=== PATIENT | female | born 1955 | race Caucasian/White ===

== ENCOUNTER → 2021-07-21 | Outpatient (CLI) | payer OTHER ==
[~2021-07-21] MED LIST: BACTRIM DS TAB1 EACH PO; BIOTIN5000 MCG PO; CALCIUM 600 +1 EAC1 PO; CARDIZEM CD180 MG PO; COZAAR 50 MG TA50 M2 PO; FISH OIL 1,001000 M2 PO; FLECAINIDE ACET50 M2 PO; GLUCOSAMINE-CH1 EA38 PO; LEVOTHYROXIN0.088 MG PO; LYSINE500 MG PO; OMEPRAZOLE40 MG PO; PROBIOTIC1 EAC1 PO; STOOL SOFTENER100 MG PO; TURMERIC500 M1 PO; UNICOMPLEX M TA1 TA1 PO; VITAMINC500 PO; XARELTO20 MG PO
== END ==
LOC: SJCVCIMAG 10:32
PROVIDERS: ATTEND Internal Medicine Cardiovascular Disease
DX: I34.0 Nonrheumatic mitral (valve) insufficiency (principal); I48.91 Unspecified atrial fibrillation; I10 Essential (primary) hypertension

== ENCOUNTER 2021-08-13 06:28 | Observation (INO) | payer OTHER ==
[2021-08-13] VITALS (8 sets, daily range): BP systolic 97–113; BP diastolic 58–81
[~2021-08-13] VITALS: Ht 162.6 cm; Wt 99.3 kg
[~2021-08-13 06:28] MED LIST changes: +COZAAR 50 MG TA50 M1 PO; -COZAAR 50 MG TA50 M2 PO; -LEVOTHYROXIN0.088 MG PO; +SYNTHROID112 MC1 PO
[2021-08-13 07:24] LABS: ABSOLUTE NEUTROPHILS 3.9 thou/uL (1.4-8.2); BASOPHILS 0.9 % (0.0-2.0); EOSINOPHILS 2.6 % (0.0-3.0); HEMATOCRIT 41.2 % (37.0-47.0); HEMOGLOBIN 13.7 gm/dL (12.0-15.0); LYMPHOCYTES 30.2 % (24.0-44.0); MCH 30.3 pg (26.0-34.0); MCHC 33.3 g/dL (28.0-37.0); MONOCYTES 9.3 % (1.0-8.0); PLATELET COUNT 259 thou/uL (150-400); RBC 4.52 mil/uL (4.20-5.00); RDW 13.8 % (10.5-14.5); WBC 6.9 thou/uL (4.0-11.0)
[2021-08-13 07:34] LABS: CALCIUM 9.1 mg/dL (8.5-10.1); POTASSIUM 3.5 mmol/L (3.5-5.1)
[2021-08-13 07:40] LABS: ALBUMIN 3.6 g/dL (3.4-5.0); TOTAL BILIRUBIN 0.6 mg/dL (0.2-1.0); TOTAL PROTEIN 7.5 g/dL (6.4-8.2)
[2021-08-13] MEDS ORDERED: SIMVASTATIN80 MG PO (07:53)
[2021-08-13] MEDS ORDERED: HYDROCHLOROTHIA25 M1 PO (07:54)
[2021-08-13] MEDS ORDERED: COZAAR 25 MG TA25 M1 PO (07:54)
[2021-08-13] MEDS ORDERED: NORVASC5 MG PO (07:55)
[2021-08-13 08:30] LABS: APTT 29.5 Seconds (24.5-32.8); INR 1.01
[2021-08-13] MEDS ORDERED: TAMBOCOR 100 M100 MG PO (15:14)
--- NOTE | 2021-08-13 15:50 | NUR ---
PT ARRIVED VIA BED FROM [employer]. GROIN SITE BLEEDING UPON ARRIVAL. CATH NURSE HELD PRESSURE TO RIGHT GROIN SITE. HEMASTASIS ACHIEVED AT 1440. PT IS A&OX4. PATRIZIA AT BEDSIDE. PT IS SR ON THE MONITOR AND IS ROOM AIR. PT STATED SHE HAD PAIN IN HER MID BACK RATING 1/10 BUT STATED SHE DOES NOT WANT ANYTHING FOR IT. PT STATED THAT IT MAY GO AWAY WHEN SHE IS ABLE TO GET OFF OF HER BACK. NO OTHER COMPLAINTS AT THIS TIME. CALL LIGHT WITHIN REACH.
[2021-08-13] MEDS ORDERED: ZYRTEC10 M4 PO (16:04)
[2021-08-14 00:45] VITALS: BP 105/67
[2021-08-14 05:05] VITALS: BP 122/78
[2021-08-14 08:20] VITALS: BP 109/63
[2021-08-14] MEDS ORDERED: DILTIAZEM ER180 M2 PO (08:38)
[2021-08-14 09:25] VITALS: BP 109/63
--- NOTE | 2021-08-14 10:39 | NUR ---
PT HOME THIS AM AFTER BREAKFAST - INSTRUCTION RE HOME MEDS/ CARE AND FOLLOW UP GIVEN TO PATIENT. STATED UNDERSTANDING OF INSTRUCTION GIVEN. PT LEFT UNIT VIA WHEELCHAIR - HOME VIA PVT VEHICLE ACCOMPANIED BY SPOUSE - NO CO'S AT TIME OF D/C.
--- NOTE | 2021-09-02 12:49 | P ---
[facility] [place] [address] PROCEDURE REPORT Name: CONNOR MERRITT Room #: 207-P [facility] Cass Miranda#: [id number] Admission: 08/13/21 Attend Phys: Rico Smith MD Discharge: 08/14/21 Date of : 53 Report #: [id number] THIS REPORT FOR: cc: David Hicks Brian J. DO Couchonnal, Luis F. MD ~ DATE OF SERVICE: 08/13/2021 PREOPERATIVE DIAGNOSIS: Atrial fibrillation. POSTOPERATIVE DIAGNOSIS: Atrial fibrillation. PROCEDURES PERFORMED: 1. Atrial fibrillation ablation, CPT code 50170. 2. 3D mapping, CPT code 71908. 3. Intracardiac echo, CPT code 46379. 4. Focal ablations with posterior wall isolation, CPT code 91144. 5. Focal ablation with left atrial appendage isolation, CPT code 94919. HISTORY: The patient is a 66-year-old female status post atrial fibrillation ablation on 01/2017, who has had clinical recurrence. She is here for repeat ablation. ANESTHESIA: The patient underwent general anesthesia with no anesthesia related complications. DESCRIPTION OF PROCEDURE: The patient underwent informed consent. We discussed the details of the procedure including the risks, which include but not limited to bleeding, vascular damage, stroke, SD, cardiac perforation and damage to the [place] conduction system requiring permanent pacemaker. She understood these risks and is willing to proceed. The patient was brought to the EP laboratory in a fasting and sedated state, prepped and draped in standard fashion, obtained access to the right femoral vein x3, placing an 8, 9 and 7-[place] short sheath using the modified Seldinger technique. Next, under fluoroscopy, decapolar catheter was placed in the coronary sinus and ICE catheter was placed in the right atrium and using intracardiac ultrasound, there was evidence of 2 left and 2 right pulmonary veins. The patient was systemically heparinized. A transseptal was performed using an SL1 sheath and a [place] needle and this was straightforward. I then exchanged for the cryosheath and placed the PentaRay catheter into the left atrium. A detailed 3D voltage map of the left atrium was created, which showed that the right superior pulmonary vein was reconnected. All other veins were isolated and there was complex fractionated atrial electrograms along the posterior wall. Of note, the patient was in atrial fibrillation throughout the procedure. I also mapped the appendage and this appeared to be active and potential log driver for AFib. Therefore, I started by re-isolating the right superior pulmonary vein. I then decided to perform [address] [address] PROCEDURE REPORT Name: CONNOR MERRITT Kayleigh Room #: 207-P [facility] Cass Miranda#: [id number] Admission: 08/13/21 Attend Phys: Rico Smith MD Discharge: 08/14/21 Date of : 53 Report #: [id number] posterior wall isolation. I performed a roof line and then a floor line and there was still some signal along the posterior left atrium. Therefore, additional ablation was performed where I found complex fractionated atrial electrograms. With the ablation catheter, I moved around and it appeared that now the left atrium was quiet and there was occasional isolated firing noted. Next, I decided to perform additional ablation and I ablated around the left atrial appendage, initially along the ridge, then below the appendage, then more anterior to the appendage and then along the roof. The appendage was not completely isolated, but its activity was now diminished. Next, the patient underwent a 200 joule synchronized cardioversion and the patient was in sinus rhythm. An EP study was performed and AV block was noted at 360 milliseconds. AV regan ERP was noted at 320 milliseconds and [address] cycle length and I could not induce any AFib, SVT or atrial flutters. As such, the procedure was concluded. The patient had no evidence of pericardial effusion. She received systemic protamine and once the ACT was within acceptable range, catheters and sheaths were pulled and hemostasis obtained. CONCLUSION: 1. Successful AFib ablation with re-isolation of the right superior pulmonary vein. 2. Successful posterior wall isolation. 3. Successful left atrial appendage modification. <ELECTRONICALLY SIGNED> By: Rico Smith MD 09/02/21 1249 [id number] Rico Smith MD /nt
[2021-09-04] MEDS ORDERED: CORRECTOL5 M1 PO (08:01)
[2021-09-04] MEDS ORDERED: MELOXICAM15 MG PO (08:05)
[2021-09-04] MEDS ORDERED: KLOR-CON M2020 MEQ PO (08:05)
== END 2021-08-14 13:00 | disposition home or self-care (01) ==
LOC: CATH 06:28 → 2N 14:42
PROVIDERS: ADMIT Internal Medicine Cardiovascular Disease; ATTEND Internal Medicine Cardiovascular Disease
DX: I48.0 Paroxysmal atrial fibrillation (principal); Z20.822 Contact with and (suspected) exposure to COVID-19; I10 Essential (primary) hypertension; E03.9 Hypothyroidism, unspecified; E78.5 Hyperlipidemia, unspecified
CPT/HCPCS: 62110; 62900; 65020; 70005

== ENCOUNTER → 2021-09-02 | Outpatient (CLI) | payer OTHER ==
[~2021-09-02] MED LIST changes: +CORRECTOL5 M1 PO; +COZAAR 25 MG TA25 M1 PO; +DILTIAZEM ER180 M2 PO; +HYDROCHLOROTHIA25 M1 PO; +KLOR-CON M2020 MEQ PO; +MELOXICAM15 MG PO; +NORVASC5 MG PO; +SIMVASTATIN80 MG PO; +TAMBOCOR 100 M100 MG PO; +ZYRTEC10 M4 PO
== END ==
LOC: SJCVC 13:18
PROVIDERS: ATTEND Internal Medicine Cardiovascular Disease
DX: I48.92 Unspecified atrial flutter (principal); R94.31 Abnormal electrocardiogram [ECG] [EKG]; I48.19 Other persistent atrial fibrillation; I10 Essential (primary) hypertension; I48.0 Paroxysmal atrial fibrillation; E03.9 Hypothyroidism, unspecified; Z88.8 Allergy status to other drugs, medicaments and biological substances; Z79.899 Other long term (current) drug therapy; Z87.891 Personal history of nicotine dependence; Z72.89 Other problems related to lifestyle; Z98.890 Other specified postprocedural states

== ENCOUNTER → 2021-09-04 | Outpatient (CLI) | payer OTHER ==
[~2021-09-04] VITALS: Ht 162.6 cm; Wt 87.0 kg
[2021-09-04 07:55] LABS: HEMATOCRIT 42.2 % (37.0-47.0); HEMOGLOBIN 13.6 gm/dL (12.0-15.0); MCH 30.1 pg (26.0-34.0); MCHC 32.3 g/dL (28.0-37.0); RBC 4.54 mil/uL (4.20-5.00); RDW 13.7 % (10.5-14.5); WBC 6.4 thou/uL (4.0-11.0)
[2021-09-04 08:11] VITALS: BP 115/81
[2021-09-04 08:13] LABS: CALCIUM 9.2 mg/dL (8.5-10.1); CREATININE 1.1 mg/dL (0.6-1.0); POTASSIUM 4.3 mmol/L (3.5-5.1)
--- NOTE | 2021-09-05 13:26 | P ---
[facility] [place] [address] PROCEDURE REPORT Name: CONNOR MERRITT Room #: [facility]#: [id number] Admission: 09/04/21 Attend Phys: Rico Smith MD Discharge: Date of : 53 Report #: [id number] THIS REPORT FOR: cc: David Hicks Brian J. DO Couchonnal, Luis F. MD ~ DATE OF SERVICE: 09/04/2021 PROCEDURE: Cardioversion. PREOPERATIVE DIAGNOSIS: Atrial flutter. POSTOPERATIVE DIAGNOSIS: Atrial flutter. DESCRIPTION OF PROCEDURE: The patient underwent informed consent. She was prepped in a standard fashion with patches placed in an AP position. She was then sedated by the anesthesiology service and then underwent a 200 joule synchronized cardioversion with druze of sinus rhythm. There were no procedure-related complications. CONCLUSION: Successful DC cardioversion of atrial flutter with druze of sinus rhythm. <ELECTRONICALLY SIGNED> By: Rico Smith MD 09/05/21 1326 [id number] Rico Smith MD /nt
== END | disposition home or self-care (01) ==
LOC: CATH 06:22
PROVIDERS: ATTEND Internal Medicine Cardiovascular Disease
DX: I48.92 Unspecified atrial flutter (principal); I10 Essential (primary) hypertension; E03.9 Hypothyroidism, unspecified; I48.91 Unspecified atrial fibrillation; E78.5 Hyperlipidemia, unspecified; Z98.890 Other specified postprocedural states; Z79.899 Other long term (current) drug therapy; Z79.01 Long term (current) use of anticoagulants; Z20.822 Contact with and (suspected) exposure to COVID-19
CPT/HCPCS: 62110; 62900

== ENCOUNTER → 2021-09-11 | Outpatient (CLI) | payer OTHER | LOC: SJCVC 15:02 | PROVIDERS: ATTEND Internal Medicine Cardiovascular Disease | DX: I44.0 Atrioventricular block, first degree (principal); I49.1 Atrial premature depolarization; I48.0 Paroxysmal atrial fibrillation; I48.4 Atypical atrial flutter; I10 Essential (primary) hypertension; E03.9 Hypothyroidism, unspecified; Z79.899 Other long term (current) drug therapy; Z88.8 Allergy status to other drugs, medicaments and biological substances; Z87.891 Personal history of nicotine dependence; Z72.89 Other problems related to lifestyle ==